=== PATIENT | male | born 1945 | race Caucasian/White ===

== ENCOUNTER → 2016-09-22 | Outpatient (CLI) | payer MEDICARE ==
[~2016-09-22] MED LIST: LIDOCAINE 1%, 20ML ONE; OMNIPAQUE 300 MG/ML, 10ML VIAL ONE; ROPIvacaine/PF 0.5%, 20 ML ONE; TRIAMCINOLONE ACETONIDE 40 MG/ML, 1ML ONE
== END | disposition home or self-care (01) ==
LOC: RAD 08:35
PROVIDERS: ATTEND Nurse Practitioner
DX: M25.571 Pain in right ankle and joints of right foot (principal); M25.371 Other instability, right ankle
CPT/HCPCS: 77002; J2795; J3301; J3490; Q9967